=== PATIENT | female | born 1965 | race African-American/Black ===

== ENCOUNTER 2017-05-12 01:00 | Emergency (ER) | payer BC, OTHER ==
[2017-05-12 02:16] VITALS: BP 143/83; PULSE 18; TEMP 98.7; BMI 44.2
[2017-05-12] MEDS ORDERED: KETOROLAC TROMETHAMINE 30 MG/1 ML VIAL IM ONE (02:56)
[2017-05-12] MEDS ORDERED: DEXAMETHASONE LIQUID 0.5 MG/5 ML 240 ML BULK BOTTLE PO ONE (02:56)
--- NOTE | 2017-05-12 03:21 | PDOC ---
History of Present Illness - General Chief Complaint: Sore Throat Stated Complaint: SORE THROAT Time Seen by Provider: 05/12/17 02:47 History Source: Patient Exam Limitations: No Limitations - History of Present Illness Initial Comments: 05/12/17 03:23 This is a 51-year-old woman with past medical history of type 2 diabetes, hypertension, osteoarthritis who presents with 1 day of sore throat and painful swallowing. She reports a dry nonproductive cough the edition to the sore throat. She denies fevers. She reports she's been able to tolerate her own saliva but is unable to tolerate anything else orally. Patient reports that the pain increases to much all swallowing. Patient's last meal was 05/10 where she had some soup was unable finish the whole thing due to the pain and swelling. She denies headaches, shortness of breath, chest pain, abdominal pain, nausea, vomiting. Past History - Past Medical History Allergies/Adverse Reactions: Allergies Allergy/AdvReac Type Severity Reaction Status Date / Time No Known Allergies Allergy Verified 05/12/17 02:16 Home Medications: Ambulatory Orders Chlorthalidone [Hygroton -] 25 mg PO DAILY 05/12/17 Insulin (LOG) Aspart [NovoLOG -] 4 unit SQ ASDIR PRN 05/12/17 Insulin Glargine,Hum.rec.anlog [Lantus Solostar PEN (NF)] 30 units SQ HS Lisinopril [Prinivil] 20 mg PO DAILY 05/12/17 Metformin HCl [Glucophage] 1,000 mg PO BID 05/12/17 Metoprolol Succinate [Toprol Xl -] 50 mg PO BID 05/12/17 Simvastatin [Zocor -] 40 mg PO HS 05/12/17 COPD: No Diabetes: Yes - Suicide/Smoking/Psychosocial Hx Smoking History: Never smoked Review of Systems - Review of Systems Able to Perform ROS?: Yes Is the patient limited Chinese proficient: No Constitutional: No: Symptoms Reported HEENTM: Yes: See HPI Respiratory: Yes: See HPI Cardiac (ROS): No: Symptoms Reported ABD/GI: No: Symptoms Reported : No: Symptoms Reported Musculoskeletal: No: Symptoms Reported Integumentary: No: Symptoms Reported Neurological: No: Symptoms reported *Physical Exam - Vital Signs Last Vital Signs Temp Pulse Resp BP Pulse Ox 98.7 F 18 L 87 H 143/83 100 05/12/17 01:55 05/12/17 01:55 05/12/17 01:55 05/12/17 01:55 05/12/17 01:55 - Physical Exam General Appearance: Yes: Appropriately Dressed. No: Apparent Distress HEENT: positive: EOMI, [place], Tonsillar Exudate, Tonsillar Erythema. negative: Excessive drooling Neck: positive: Trachea midline, Supple Respiratory/Chest: positive: Lungs Clear, Normal Breath Sounds. negative: Chest Tender, Respiratory Distress, Accessory Muscle Use Cardiovascular: positive: Regular Rhythm, Regular Rate, S1, S2. negative: Edema , Murmur Gastrointestinal/Abdominal: positive: Normal Bowel Sounds, Soft. negative: Tender Musculoskeletal: positive: Normal Inspection. negative: CVA Tenderness Extremity: positive: Normal Capillary Refill, Normal Inspection, Normal Range of Motion Integumentary: positive: Normal Color, Dry, Warm Neurologic: positive: senior php developer II-XII NML intact, Fully Oriented, Alert, Normal Mood/ Affect, Normal Response, Motor Strength 5/5 Medical Decision Making - Medical Decision Making 05/12/17 03:23 A/P: This is a 51-year-old woman with past medical history of type 2 diabetes, hypertension, osteoarthritis who presents with 1 day of sore throat and painful swallowing. She reports a dry nonproductive cough the edition to the sore throat. She denies fevers. She reports she's been able to tolerate her own saliva but is unable to tolerate anything else orally. Patient reports that the pain increases to much all swallowing. Patient's last meal was 05/10 where she had some soup was unable finish the whole thing due to the pain and swelling. She denies headaches, shortness of breath, chest pain, abdominal pain, nausea, vomiting. Examination of the oropharynx reveals tonsillar swelling with erythema and exudate. There is no anterior or posterior cervical lymphadenopathy. No submandibular lymph node swelling. Lungs clear to auscultation bilaterally. S1 and S2 present. Regular rate and rhythm. No murmurs rub or gallop auscultated. Normoactive bowel sounds. Abdomen soft nontender nondistended. Differential diagnoses include strep throat, viral pharyngitis. More likely viral versus bacterial given Centor score of 0. I'll give the patient 10 mg of Decadron by mouth, 30 mg of Toradol IM. I will obtain a rapid strep then reassess. 05/12/17 04:00 Patient states relief after receiving the medications to be discharged. Reexamination of the oropharynx shows decrease inflammation to the peritonsillar area. Patient instructed to take Motrin and Tylenol for fever or pain. Instructed to stay well-hydrated. Patient is aware of the difference between viral and bacterial infections and understands why antibiotics not been prescribed. I discussed the physical exam findings, ancillary test results and final diagnoses with the patient. I answered all of the patient's questions. The patient was satisfied with the care received and felt comfortable with the discharge plan and treatment plan. The patient will call her doctor within 96 hours to arrange follow-up and will return to the Emergency Department with any new, persistent or worsening symptoms. *DC/Admit/Observation/Transfer Diagnosis at time of Disposition: Viral pharyngitis - Discharge Dispostion Disposition: HOME Condition at time of disposition: Stable Admit: No - Patient Instructions Additional Instructions: Take Tylenol or Motrin as directed by veneer sorter's instructions. Salt water gargling may help decrease inflammation in your throat. Keep well hydrated. Make an appointment with your doctor if symptoms are not better in 4-5 days. Return to ED for fevers, chills, difficulty swallowing, voice changes, drooling or any other concerns. Thank you for choosing us to provide your emergent healthcare needs.
[2017-05-12] MEDS ORDERED: KETOROLAC TROMETHAMINE 30 MG/1 ML VIAL ONE (03:32)
[2017-05-12] MEDS ORDERED: DEXAMETHASONE SOD PHOSPHATE 10 MG/1 ML VIAL ONE (03:32)
== END 2017-05-12 04:27 | disposition home or self-care (01) ==
LOC: JER 01:00
PROC: 3E0233Z Introduction of Anti-inflammatory into Muscle, Percutaneous Approach (ICD-10-PCS; principal; 2017-05-12)
DX: J02.9 Acute pharyngitis, unspecified (principal); B97.89 Other viral agents as the cause of diseases classified elsewhere; I10 Essential (primary) hypertension; E11.9 Type 2 diabetes mellitus without complications; Z79.84 Long term (current) use of oral hypoglycemic drugs; E78.00 Pure hypercholesterolemia, unspecified; M19.90 Unspecified osteoarthritis, unspecified site
CPT/HCPCS: 87070; 87430; 99281-25